=== PATIENT | male | born 1955 | race Hispanic/Latino ===

== ENCOUNTER 2020-08-17 11:33 | Emergency (ER) | payer OTHER ==
[2020-08-17] MEDS ORDERED: KETOROLAC TROMETHAMINE 60 MG/2 ML VIAL ONE (12:22)
[2020-08-17] MEDS ORDERED: HYDROCODONE/ACETAMINOPHEN 10/325 MG TAB ONE (12:22)
[2020-08-17] MEDS ORDERED: CYCLOBENZAPRINE HCL 10 MG TABLET ONE (12:22)
[2020-08-17] MEDS ORDERED: LACTULOSE 20 GM/30 ML UDCUP ONE (13:27)
== END 2020-08-17 13:45 | disposition home or self-care (01) ==
LOC: EDH 11:33
DX: M47.896 Other spondylosis, lumbar region (principal); M54.5 Low back pain; K59.00 Constipation, unspecified; I10 Essential (primary) hypertension; E11.9 Type 2 diabetes mellitus without complications; E07.9 Disorder of thyroid, unspecified; E78.00 Pure hypercholesterolemia, unspecified; Z87.891 Personal history of nicotine dependence
CPT/HCPCS: 72100; 73502; 96372; 99284; J1885